=== PATIENT | female | born 1985 | race Caucasian/White ===

== ENCOUNTER 2018-11-21 11:54 | Emergency (ER) | payer OTHER ==
[2018-11-21 12:27] VITALS: BP 134/80
--- NOTE | 2018-11-21 14:05 | ED Physician Documentation ---
History of Present Illness - Stated complaint Stated Complaint: MED REFILL - Chief complaint Chief Complaint: Resp - History obtained from History obtained from: Patient - Additonal information Additional information: Patient is a 33-year-old female with history of asthma with concern for need of medication refills for her asthma. Patient has follow-up appointment with primary care physician, but not until later this month. Patient reports her asthma is at baseline, but believes it will worsen acutely if not using her normal medications. Patient admits to not shortness of breath and wheezing, which is her typical. She denies new cough, fever, chest pain, URI symptoms, or other complaints. No other improving or worsening symptoms noted. Review of Systems Constitutional: denies: Fever Respiratory: reports: Wheezing. denies: Cough PD PAST MEDICAL HISTORY - Past Medical History Respiratory: Asthma - Past Surgical History Past Surgical History: No - Present Medications Home Medications: Ambulatory Orders Medication Instructions Recorded Confirmed Albuterol 2.5 mg INH Q4H PRN #30 neb 11/21/18 Albuterol Sulf [Ventolin Hfa 1 - 2 puffs INH Q4HR PRN #1 inhaler 11/21/18 Inhaler] Fluticasone/Salmeterol [Advair 1 each IH Q6HR #1 blst.w.dev 11/21/18 250-50 Diskus] - Allergies Allergies/Adverse Reactions: Allergies Allergy/AdvReac Type Severity Reaction Status Date / Time No Known Drug Allergies Allergy Verified 11/21/18 12:27 PD ED PE NORMAL - General General: Alert and oriented X 3, No acute distress, Well developed/nourished - HEENT HEENT: Atraumatic, Moist mucous membranes, Pharynx benign, Dentition benign - Cardiac Cardiac: RRR, No murmur - Respiratory Respiratory: No respiratory distress. No: Clear bilaterally (Poor air movement to bases with prominent expiratory wheezing throughout. No crackles.) - Derm Derm: Normal color, Warm and dry, No rash - Extremities Extremities: No deformity, No tenderness to palpate - Neuro Neuro: Alert and oriented X 3, No motor deficit, No sensory deficit - Psych Psych: Normal mood, Normal affect Results - Vitals Vitals: Vital Signs - 24 hr 11/21/18 12:25 Temperature 36.7 C Heart Rate 79 Respiratory 20 Rate Blood Pressure 134/80 H O2 Saturation 99 Oxygen O2 Source Room air PD MEDICAL DECISION MAKING - ED course Complexity details: considered differential, d/w patient ED course: Patient requesting refill of albuterol nebulizer solution, albuterol inhaler, and Advair. Unfortunately, patient has run out of these medications and is unable to see her primary care physician until later this month. Patient has baseline asthma and reports no acute exacerbation, but states she knows she will worsen if she does not have her regular medications. Do not find evidence of other acute process or systemic illness on exam. However, she does have significant wheezing and offered interventions including nebulizer, but patient declined. Patient was comfortable with discharge home. Departure - Departure Disposition: , Self Care Clinical Impression: Asthma Qualifiers: Asthma severity: moderate Asthma persistence: persistent Asthma complication type: uncomplicated Qualified Code(s): J45.40 - Moderate persistent asthma, uncomplicated Condition: Good Instructions: Asthma Dc Follow-Up: your,doctor [Other] - Within 3 Days Prescriptions: Albuterol Sulf [Ventolin Hfa Inhaler] 1 - 2 puffs INH Q4HR PRN #1 inhaler PRN Reason: Shortness Of Air/Wheezing Fluticasone/Salmeterol [Advair 250-50 Diskus] 1 each IH Q6HR #1 blst.w.dev Albuterol 2.5 mg INH Q4H PRN #30 neb PRN Reason: Wheezing Comments: Please use medications as prescribed to help alleviate symptoms of asthma. Please follow-up with your primary care physician next 2-3 days or as scheduled later this month if unable to move up appointment. Please return to ED sooner if experience worsening symptoms asthma or you have other concerns.
== END 2018-11-21 14:18 | disposition home or self-care (01) ==
LOC: ED 11:54
DX: J45.40 Moderate persistent asthma, uncomplicated (principal)
CPT/HCPCS: 99282; 99283